=== PATIENT | female | born 1970 | race Caucasian/White ===

== ENCOUNTER 2024-05-02 19:52 | Emergency (ER) | payer OTHER, SELFPAY ==
[2024-05-02 19:39] VITALS: BMI 34.3
--- NOTE | 2024-05-02 19:42 | PC.NURSE ---
@ 193 Received report from Brenna Holden EMT-P for possible CVA. LKN was 1845 today. Pt is A&Ox4. She has L facial droop, L sided weakness & decrease sensation, and slurred speech. FAST ED 4. FS 147. @ 194 Notified Radiology on incoming Stroke Alert. @ 1942 Called [employer] for possible standby. States [place] [facility] is available and will have a 28 min call time and will be on standby. @1944 supervisor pressing department notified of incoming Stroke Alert and Possible incoming air [facility]
--- NOTE | 2024-05-02 19:46 | CT_ITS ---
PROCEDURE INFORMATION: Exam: CTA Head With Contrast, Arteriography Exam date and time: 05/02/2024 7:58 PM Age: 53 years old Clinical indication: Stroke-like symptoms; Left facial droop; Lt upper extremity weakness; Additional info: Stroke alert* lnk 1845, L facial droop, lside weak TECHNIQUE: Imaging protocol: Computed tomographic angiography of the head with contrast. Exam focused on the arteries. 3D rendering (Not supervised by radiologist): MIP and/or 3D reconstructed images were created by the technologist. Radiation optimization: All CT scans at this facility use at least one of these dose optimization techniques: automated exposure control; mA and/or kV adjustment per patient size (includes targeted exams where dose is matched to clinical indication); or iterative reconstruction. Contrast material: ISOVUE; Contrast volume: 80 ml; Contrast route: INTRAVENOUS (IV); COMPARISON: CT HEAD/BRAIN WO CON 05/02/2024 7:58 PM FINDINGS: ANTERIOR CIRCULATION: Right internal carotid artery: Intracranial segment is patent with no significant stenosis. No aneurysm. Right middle cerebral artery: No occlusion or significant stenosis. No aneurysm. Right anterior cerebral artery: No occlusion or significant stenosis. No aneurysm. Left internal carotid artery: Intracranial segment is patent with no significant stenosis. No aneurysm. Left middle cerebral artery: No occlusion or significant stenosis. No aneurysm. Left anterior cerebral artery: No occlusion or significant stenosis. No aneurysm. POSTERIOR CIRCULATION: Right vertebral artery: No occlusion or significant stenosis. No aneurysm. Left vertebral artery: No occlusion or significant stenosis. No aneurysm. Basilar artery: No occlusion or significant stenosis. No aneurysm. Right posterior cerebral artery: No occlusion or significant stenosis. No aneurysm. Left posterior cerebral artery: No occlusion or significant stenosis. No aneurysm. Brain: Multiple hemorrhagic intracranial masses again visualized with surrounding edema and mild mass effect. No significant midline shift noted. Cerebral ventricles: No ventriculomegaly. Bones/joints: No acute fracture. Soft tissues: Unremarkable. IMPRESSION: 1. No acute large vessel occlusion identified. 2. Multiple hemorrhagic intracranial masses with surrounding edema again identified.
--- NOTE | 2024-05-02 19:46 | CT_ITS ---
PROCEDURE INFORMATION: Exam: CT Head Without Contrast Exam date and time: 05/02/2024 7:58 PM Age: 53 years old Clinical indication: Stroke-like symptoms; Left facial droop; Lt upper extremity weakness; Additional info: Stroke alert* lnk 1845, L facial droop, lside weak TECHNIQUE: Imaging protocol: Computed tomography of the head without contrast. Radiation optimization: All CT scans at this facility use at least one of these dose optimization techniques: automated exposure control; mA and/or kV adjustment per patient size (includes targeted exams where dose is matched to clinical indication); or iterative reconstruction. Other technique: STROKE PROTOCOL was implemented. COMPARISON: CT ANGIO HEAD 05/02/2024 7:58 PM FINDINGS: Brain: There are multiple hemorrhagic intracranial lesions present suspicious for metastatic disease. For example there is a lesion in the left frontoparietal region near the vertex measuring 1.5 x 1.6 cm on series 3, image 50 with surrounding edema. There is a large region of edema in the right temporal occipital region with ill-defined hemorrhage and probable 2 cm lesion on axial image 25 with mild mass effect on the posterior aspect of the right lateral ventricle. There is a region of hemorrhage in the left thalamus measuring 11 mm. Edema and hemorrhage is also seen in the superomedial right frontal lobe measuring 11 mm on axial image 53. There is a region of edema in the nsmv-[id number]-[id number]-right parasagittal frontal lobe inferiorly. No significant midline shift is noted. Cerebral ventricles: No ventriculomegaly. Paranasal sinuses: No significant inflammation. No fluid levels. Mastoid air cells: No significant inflammation. Bones: No acute fracture. Soft tissues: Unremarkable. IMPRESSION: Multiple hemorrhagic intracranial masses with surrounding edema with mild mass effect or midline shift, as described. This is highly suspicious for intracranial metastatic disease and correlation with history is recommended. Additionally a MRI brain with and without contrast material is recommended for follow-up. ASSESSMENT: ASPECTS ([place] Stroke Program Early CT Score) is 10.
--- NOTE | 2024-05-02 19:46 | CT_ITS ---
PROCEDURE INFORMATION: Exam: CTA Neck With Contrast Exam date and time: 05/02/2024 7:58 PM Age: 53 years old Clinical indication: Stroke-like symptoms; Left facial droop; Lt upper extremity weakness; Additional info: Stroke alert* lnk 1845, L facial droop, lside weak TECHNIQUE: Imaging protocol: Computed tomographic angiography of the neck with contrast. Exam focused on the cervical segments of the vasculature. 3D rendering (Not supervised by radiologist): MIP and/or 3D reconstructed images were created by the technologist. Radiation optimization: All CT scans at this facility use at least one of these dose optimization techniques: automated exposure control; mA and/or kV adjustment per patient size (includes targeted exams where dose is matched to clinical indication); or iterative reconstruction. Contrast material: ISOVUE; Contrast volume: 80 ml; Contrast route: INTRAVENOUS (IV); COMPARISON: CT ANGIO HEAD 05/02/2024 7:58 PM FINDINGS: Right common carotid artery: No stenosis. No dissection or occlusion. Right internal carotid artery: No stenosis of the extracranial segment. No dissection or occlusion. Right external carotid artery: No visible occlusion. Left common carotid artery: No stenosis. No dissection or occlusion. Left internal carotid artery: There is web or incomplete dissection in the proximal left internal carotid artery for example on series 4 image 276 which is not flow-limiting. Left external carotid artery: No visible occlusion. Right vertebral artery: No stenosis. No dissection or occlusion. Left vertebral artery: No stenosis. No dissection or occlusion. Soft tissues: No significant soft tissue swelling. Bones/joints: Multilevel cervical spinal degenerative disc disease with mild stenosis C3-C6. Lungs: There is dependent consolidation or atelectasis bilaterally in the lung apices. Mild paraseptal emphysema. IMPRESSION: 1. No vascular occlusion seen in the neck. The proximal left internal carotid artery has a web or a focal incomplete dissection which is not flow-limiting. 2. There is dependent consolidation or atelectasis bilaterally in the lung apices. Correlate for infection clinically. REFERENCES: NASCET CRITERIA. The degree of stenosis in the cervical segment of the internal carotid artery is based on NASCET criteria. Normal is no stenosis. Mild is less than 50% stenosis. Moderate is 50-69% stenosis. Severe is 70% to 99% stenosis. Total occlusion is no detectable patent lumen.
[2024-05-02 19:52] VITALS: BP 145/75; PULSE 79; RESP 15; O2SAT 97; BMI 30.4
[2024-05-02 19:55] VITALS: BP 128/79; PULSE 70; RESP 15; TEMP 36.7; O2SAT 97
[2024-05-02] MEDS: 0.9 % SODIUM CHLORIDE 50 ML VIAL IV (19:57)
[2024-05-02] MEDS: SODIUM CHLORIDE 0.9% 10ML SYR (RAD ONLY) 10 ML IV (19:57)
--- NOTE | 2024-05-02 19:57 | PC.NURSE ---
Pt arrived at [address] taken directly to CT scan.
[2024-05-02] MEDS: IOPAMIDOL-370 (76%);100ML BOTTLE 80 ML IV (19:58)
[2024-05-02 20:02] VITALS: BP 145/75; PULSE 79; O2SAT 96
--- NOTE | 2024-05-02 20:02 | HMH.EDGENADL ---
Discharge Plan Disposition Chief Complaint: Neuro Symptoms/Deficit Referrals Follow up/Referrals: Benito Ambriz APRN [Primary Care Provider] - See instructions Clinical Impressions Clinical Impression: Metastasis to brain, Facial droop, Right arm weakness, Dissection of left carotid artery Print Language Print Language: Portuguese Discharge ED Provider: Sugar Castaneda General Adult HPI General Chief complaint: Neuro Symptoms/Deficit Stated complaint: Stroke Alert, LKN 18405/02, L droop/L weakness Time Seen by Provider: 05/02/24 19:58 History of Present Illness HPI narrative: This patient is a 53-year-old female with a history of metastatic melanoma on immunotherapy with known brain lesion, diabetes, hypertension presenting to the emergency department for evaluation with concern for acute right-sided weakness that started at 184 today. According to EMS, they were called to the home of the patient because she acutely developed right-sided facial droop and right sided weakness of her upper and lower extremity at 1845. She has known brain lesion but has not had neurologic deficits that have been reported to date. EMS notes that initially, she had flaccid paralysis of her right upper extremity and significant weakness of her right lower extremity rendering her unable to stand. She also had facial droop and slurred speech. According to the patient, she was feeling fine when this started suddenly at 184. Symptoms are slightly improving, she is now able to move her right upper extremity a little bit, but is having a lot of difficulty with her hand specifically. She also was not able to move her right lower extremity little bit better. She denies any pain, visual disturbance, numbness, tingling, or other concerns. No recent trauma. She denies use of anticoagulation Related Data Allergies Allergy/AdvReac Type Severity Reaction Status Date / Time Penicillins Allergy Other Verified 05/02/24 19:[address] [facility] Disclaimer: The information contained in this section may have been updated after the patient was seen, as this information can be updated by other users. Social History Smoking Status: Current every day smoker alcohol intake: never current occupational status: other Travel in the last 8 weeks: None ROS Obtained: Yes All systems reviewed & no additional complaints except as documented Physical Exam General General appearance: alert and in no apparent distress Head Head exam: atraumatic and normocephalic Eye Eye exam: Present normal appearance, PERRL and EOMI ENT ENT exam: Present normal exam, normal oropharynx, mucous membranes moist and normal external ear exam Neck Neck exam: Present normal inspection, full ROM and trachea midline; Absent tenderness Chest Chest inspection: Present normal inspection and symmetric chest wall rise; Absent tenderness Respiratory Respiratory exam: Present normal lung sounds bilaterally; Absent respiratory distress, wheezes, stridor or accessory muscle use Cardiovascular Cardiovascular exam: Present regular rate and normal rhythm Abdominal Exam Abdominal exam: Present soft; Absent distention, tenderness or guarding Extremities Exam Extremities exam: Present normal inspection, full ROM and normal capillary refill; Absent tenderness or edema Back Exam Back exam: Present normal inspection and full ROM; Absent tenderness Neurological Exam Neurological exam: Present alert, oriented X3, motor sensory deficit and other (Right-sided facial droop, right upper extremity weakness, especially with her hand. No notable sensory deficits. Discoordination of her right upper extremity. Slight slurred speech. NIHSS 7); Absent CN II-XII intact Psychiatric Psychiatric exam: Present normal affect and normal mood Skin Skin exam: Present warm and dry Medical Decision Making Medical Records Medical records reviewed: Yes I reviewed the patient's medical records. Screening: Per USPSTF and CDC recommendations, given the prevalence of disease in our region, it is our hospital?s policy to screen for HIV and viral Hepatitis for all patients aged 18 and over and those with ongoing risk factors. Lenin Inquiry Pt receiving controlled substance: No Vital Signs: 05/02/24 19:52 Pulse Rate [Right] 79 Respiratory Rate 15 Blood Pressure [Right Arm] 145/75 H Blood Pressure Mean [Right Arm] 98 Blood Pressure Source [Right Arm] Automatic Cuff 02 Sat by Pulse Oximetry 97 Oxygen Delivery Method Nasal Cannula Oxygen Flow Rate (LPM) 2 Lab Data Lab results reviewed: Yes I reviewed the patient's lab results. Lab Results 05/02/24 19:55: WBC 13.7 H, RBC 5.24, Hgb 15.5, Hct 45.5, MCV 86.9, MCH 29.6, MCHC 34.1, RDW 14.8, Plt Count 249, MPV 8.1, Neut % (Auto) 72.8, Lymph % (Auto) 20.4, Leake % (Auto) 5.4, Eos % (Auto) 0.5, Baso % (Auto) 1.0, Neut # (Auto) 9.9 H, Lymph # (Auto) 2.8, Leake # (Auto) 0.7, Eos # (Auto) 0.1, Baso # (Auto) 0.1, PT 10.3, INR 0.91, APTT 21.4 L, Sodium 132 L, Potassium 3.3 L, Chloride 97 L, Carbon Dioxide 23, Anion Gap 15.3 H, BUN 31 H, Creatinine 0.70, Estimated Creat Clear 130, Estimated GFR 87, Est GFR ( Amer) 105, Glucose 120 H, Calcium 9.4, Total Protein 6.9, Albumin 4.2, Globulin 2.7, Albumin/Globulin Ratio 1.6, HIV 1&2 Antibody Rapid Nonreactive 05/02/24 19:55 05/02/24 19:55 Orders (Tests/Meds): ED MEDICATIONS Discontinued Medications Generic Name Dose Route Start Last Admin Trade Name Freq PRN Reason Stop Dose Admin Dexamethasone Sodium Phosphate 4 mg 05/02/24 21:14 Dexamethasone 4mg/Ml 1ml Vial IV 05/02/24 21:15 ONCE ONE Levetiracetam 1,000 mg/ Sodium 110 mls @ 220 mls/hr 05/02/24 21:14 Chloride IV 05/02/24 21:15 ONCE ONE Iopamidol 80 ml 05/02/24 19:56 05/02/24 19:58 Iopamidol-370 (76%);100ml Bottle IV 05/02/24 19:57 80 ml ONCE ONE Administration Sodium Chloride 10 ml 05/02/24 19:56 05/02/24 19:57 Sodium Chloride 0.9% 10ml Syr (Rad Only) IV 05/02/24 19:57 10 ml ONCE ONE Administration Sodium Chloride 50 ml 05/02/24 19:56 05/02/24 19:57 0.9 % Sodium Chloride 50 Ml Vial IV 05/02/24 19:57 50 ml ONCE ONE Administration ORDERS Category Date Time Status CT angio head Stat Cat Scan 05/02/24 19:[address] angio neck Stat Cat Scan 05/02/24 19:[address] head/brain wo con Stat Cat Scan 05/02/24 19:46 Completed Complete Blood Count Auto Diff Stat Lab 05/02/24 19:55 Completed Comprehensive Metabolic Panel Stat Lab 10/29/24 19:55 Results HIV (1&2) Antibody Rapid Stat Lab 05/02/24 19:55 Completed Hep C Ab with Reflex to RNA Stat Lab 05/02/24 19:55 Received PTT [Activated Partial Thrombo Time] Stat Lab 05/02/24 19:55 Completed Prothrombin Time INR Stat Lab 05/02/24 19:55 Completed ECG Data Tracing #1: I reviewed this ECG and interpreted as documented below: Normal sinus rhythm with a ventricular rate of [address] changes concerning for ischemia. Normal axis and intervals. ECG initial impression date: 05/02/24 ECG initial impression time: 20:23 Medical Decision Narrative: In summary, this patient is a 53-year-old female presenting to the Emergency Department for evaluation of acute onset neurologic symptoms at 1845. Differential diagnoses considered include but are not limited to CVA, intracranial hemorrhage, worsened metastatic burden, edema related to her intracranial mets. Ruling out the most morbid conditions drove assessment. It should be noted patient's history includes metastatic melanoma, hypertension, diabetes which may or may not be at goal therapy. This complicates all aspects of care by increasing patient's risk for morbidity. I was unable to review prior records, as the patient generally follows at [place] for her medical care. On exam, the patient is lying in bed in no acute distress. She is alert and conversational. She has an NIH stroke scale of 7 with a last known normal of 1845 given her right sided deficits, slight slurred speech, discoordination of her right upper extremity. Patient was taken emergently to CT scans for stroke workup. Workup included basic lab evaluation, coags, and EKG as well. I independently interpreted CT scan prior to the radiologist read and noted multiple brain metastasis. Please see their read for final interpretation. They advised concern for hemorrhagic metastases as well as edema and midline shift. We powershared to after speaking with patient, so that we could get recommendations from them directly viewing the imaging, though the patient does follow at [facility] typically. I spoke with Dr. Langley with Neurology who advised given location of lesions, could explain her symptoms. No evidence of acute stroke. They advised radiology reading of L carotid abnormality is likely artifact. I then asked to speak with [facility] for recommendations. Dr. Anders advised they were waiting to get them on the phone but they likely wouldn't have any other recommendations. I asked to speak with them anyway, and she advised they would call. Labs were obtained that demonstrated mild leukocytosis, she is currently on steroids. Normal platelet count, PT, PTT. She has mild hyponatremia and mild hypokalemia. Mildly elevated BUN and anion gap. On reassessment, patient stable. BP 120s/70s indicating no need for antihypertensives at this time. As of 2099, awaiting neurosurgical recommendations. I ended up having a discussion with Dr. Castillo with NSG at who advised he would accept the patient to [facility] ED for evaluation, as they could potentially consider the patient for neurosurgical intervention tomorrow. He recommended giving dexamethasone as well as Keppra, which were given to the patient IV. She remained stable at this time. I updated her to plan of care. She was transported by EMS in stable condition Critical Care Critical Care Time Critical Care Time: Yes Attestation: On 05/02/24, the high probability of a clinically significant, sudden or life threatening deterioration of the following system(s) required my full and direct attention, intervention and personal management. The time I documented below is in addition to time spent performing reported procedures but includes the following listed in this critical care notation. Total Time Total Critical Care Time: 45
--- NOTE | 2024-05-02 20:05 | PC.NURSE ---
Helicopter cancelled per ED doctor
[2024-05-02 20:14] LABS: Sodium 132 mmol/L (136-145)
--- NOTE | 2024-05-02 20:15 | PC.NURSE ---
Called [facility] about possible transfer, they are going to give us a call back as soon as they get a provider to speak with .
[2024-05-02 20:16] LABS: Albumin Level 4.2 g/dl (3.5-5.0); Albumin/Globulin Ratio 1.6 (1.1-1.8); Anion Gap 15.3 mEq/L (5-15); Blood Urea Nitrogen 31 mg/dl (7-17); Calcium 9.4 mg/dl (8.4-10.2); Carbon Dioxide 23 mmol/L (22.0-30.0); Creatinine Clearance Estimated 130 mL/min (50-200); Estimated Glomerular Filt Rate 87 ml/min (>60); GFR (African American) 105 ML/MIN (>60); Globulin 2.7 g/dL (1.3-3.2); Glucose 120 mg/dl (74-100); Potassium 3.3 mmoL/L (3.5-5.1); Total Protein,Serum 6.9 g/dl (6.3-8.2)
--- NOTE | 2024-05-02 20:17 | PC.NURSE ---
Dr. Leonel HAJI for critical results on CT scans
[2024-05-02 20:20] LABS: Basophils # 0.1 K/mm3 (0-0.2); Eosinophils # 0.1 K/mm3 (0.0-0.4); Eosinophils % 0.5 % (0.1-12.0); Hematocrit 45.5 % (37.0-47.0); Hemoglobin 15.5 g/dL (12.2-16.2); Lymphocytes # 2.8 K/mm3 (0.7-4.5); Lymphocytes % 20.4 % (10-50); Mean Corpuscular HGB Conc 34.1 g/dL (31.8-35.4); Mean Corpuscular Hemoglobin 29.6 pg (27.0-31.2); Mean Corpuscular Volume 86.9 fl (81-99); Mean Platelet Volume 8.1 fl (7.4-10.4); Monocytes # 0.7 K/mm3 (0.1-1.0); Monocytes % 5.4 % (1.7-9.3); Neutrophils # 9.9 K/mm3 (1.8-7.8); Neutrophils % 72.8 % (37.0-80.0); Platelet Count 249 K/mm3 (142-424); Red Blood Count 5.24 M/mm3 (4.20-5.40); Red Cell Distribution Width 14.8 % (11.5-17.5); White Blood Count 13.7 K/mm3 (4.8-10.8)
--- NOTE | 2024-05-02 20:21 | ECG_ITS ---
APPROVED REPORT Exam: Resting ECG HR:73 bpm ECG Measurements Heart Rate 73 AXES [place] 186 P 61 QRSd 96 QRS 46 QT 375 T 48 QTc 401 Conclusion SINUS RHYTHM NORMAL ECG Electronically signed by : RIA ROMERO, 05/02/2024 22:52:08
[2024-05-02 20:30] VITALS: BP 129/79; PULSE 75; RESP 14; O2SAT 97
[2024-05-02 20:43] LABS: Activated Partial Thrombo Time 21.4 seconds (22.8-30.6); INR 0.91 (0.9-1.1); Prothrombin Time 10.3 seconds (10.1-12.5)
[2024-05-02 20:49] LABS: HIV (1&2) Antibody Rapid NONREACTIVE (NONREACTIVE)
[2024-05-02 21:00] VITALS: BP 129/78; PULSE 71; RESP 15; O2SAT 96
[2024-05-02 21:08] LABS: Chloride 97 mmol/L (98-107)
--- NOTE | 2024-05-02 21:11 | PC.NURSE ---
Dr. Castaneda s[facility]w [facility]
--- NOTE | 2024-05-02 21:13 | PC.NURSE ---
spoke to Radha at [facility] transfer center re: transfer to their facility. She is reaching out to neuro and will call us back. they do not have any beds available at this time, but she will be put on a list
[2024-05-02 21:14] LABS: Alanine Aminotransferase 38 U/L (12-78); Alkaline Phosphatase 50 U/L (38-126); Aspartate Amino Transferase 27 U/L (14-36); Bilirubin,Total 0.6 mg/dl (0.2-1.3)
--- NOTE | 2024-05-02 21:16 | PC.NURSE ---
[facility] called back and has accepted patient, . Danielito notified that we do not need to transfer to their facility
[2024-05-02] MEDS: levETIRAcetam 1,000 MG in 0.9 % SODIUM CHLORIDE 100 ML 220 MG IV (21:23)
[2024-05-02] MEDS: DEXAMETHASONE 4MG/ML 1ML VIAL 4 MG IV (21:24)
[2024-05-02 21:30] VITALS: BP 129/79; PULSE 72; RESP 19; O2SAT 100
--- NOTE | 2024-05-02 21:49 | PC.NURSE ---
Report called to Elyse Varela RN @ [facility]
[2024-05-04 05:25] LABS: HCV Ab Non Reactive (Non Reactive)
== END 2024-05-02 21:58 | disposition short-term general hospital (02) ==
PROVIDERS: Emergency Provider Emergency Medicine; PCP Nurse Practitioner
DX: R29.810 Facial weakness (principal); G81.91 Hemiplegia, unspecified affecting right dominant side; R47.81 Slurred speech; I77.71 Dissection of carotid artery; R29.898 Other symptoms and signs involving the musculoskeletal system; C79.31 Secondary malignant neoplasm of brain
CPT/HCPCS: 70450; 70496; 70498; 80053; 85025; 85610; 85730; 86803; 87389; 93005; 96374; 96375; 99291; J1100; J1953; Q9967